=== PATIENT | male | born 1950 | race Caucasian/White ===

== ENCOUNTER 2017-07-05 00:54 | Inpatient (IN) | payer OTHER, MEDICAID ==
[~2017-07-05] VITALS: Ht 160 cm; Wt 60.3 kg
[2017-07-05] VITALS (7 sets, daily range): BP systolic 129–172; BP diastolic 56–69
[2017-07-05 02:06] LABS: BASOPHIL % 0.5 % (0-2); PLATELET COUNT 330 x10^3mcL (130-400)
[2017-07-05 02:09] LABS: RED CELL DISTRIBUTION WIDTH 16.2 % (11.5-14.5)
[2017-07-05] MEDS ORDERED: ARICEPT10 MG PO (03:03)
[2017-07-05] MEDS ORDERED: COLACE100 MG PO (03:04)
[2017-07-05] MEDS ORDERED: GOOD SENSE ASPI81 M3 PO (03:04)
[2017-07-05] MEDS ORDERED: NATURE'S BLEND F1 MG PO (03:04)
[2017-07-05] MEDS ORDERED: KEPPRA500 MG PO (03:05)
[2017-07-05] MEDS ORDERED: LEVEMIR100 U/M1 SC (03:06)
[2017-07-05] MEDS ORDERED: MULTI-VITAMINS1 TAB PO (03:07)
[2017-07-05] MEDS ORDERED: LEXAPRO10 MG PO (03:07)
[2017-07-05] MEDS ORDERED: MOM PO (03:07)
[2017-07-05] MEDS ORDERED: NOR10 PO (03:08)
[2017-07-05] MEDS ORDERED: RISPERIDONE1 MG PO (03:08)
[2017-07-05] MEDS ORDERED: APAP500 MG PO (03:09)
[2017-07-05 03:51] LABS: ALBUMIN 2.8 g/dL (3.4-5.0); CREATININE SERUM 2.2 mg/dL (0.7-1.3); POTASSIUM SERUM 4.5 mmol/L (3.5-5.1); TOTAL PROTEIN, SERUM 7.1 g/dL (6.4-8.2)
[2017-07-05 03:52] LABS: BILIRUBIN TOTAL 0.1 mg/dL (0.20-1.00); CALCIUM 8.4 mg/dL (8.5-10.1)
[2017-07-05 04:25] LABS: MAGNESIUM 2.5 mg/dL (1.8-2.4); PHOSPHOROUS 4.9 mg/dL (2.5-4.9)
[2017-07-05 04:35] LABS: T3 TOTAL 1.07 ng/mL
[2017-07-05 05:19] LABS: FREE T4 0.88 ng/dL (0.76-1.46); FREE THYROXINE INDEX 2.8 ug/dL (1.4-4.5)
[2017-07-05 07:30] LABS: TOTAL IRON BINDING CAPACITY 409 ug/dL (250-450)
[2017-07-05 07:32] LABS: IRON 23 ug/dL (65-170)
[2017-07-05 07:44] LABS: RED BLOOD CELLS 2.63 M/mm3 (4.52-5.90)
[2017-07-05 07:50] LABS: UA SPECIFIC GRAVITY 1.015 (1.005-1.035); microscopic required? YES
[2017-07-05 07:51] LABS: urine erythrocyte TRACE (NEGATIVE)
[2017-07-06 00:30] VITALS: BP 110/47
[2017-07-06 08:13] LABS: BASOPHIL % 0.3 % (0-2); PLATELET COUNT 309 x10^3mcL (130-400)
[2017-07-06 09:04] LABS: RED CELL DISTRIBUTION WIDTH 17.6 % (11.5-14.5)
[2017-07-06 09:08] LABS: CALCIUM 8.8 mg/dL (8.5-10.1); CARBON DIOXIDE 25.8 mmol/L (21-32); CREATININE SERUM 1.8 mg/dL (0.7-1.3); POTASSIUM SERUM 5.2 mmol/L (3.5-5.1)
[2017-07-06 09:20] VITALS: BP 144/61
[2017-07-06 10:09] VITALS: BP 124/63
[2017-07-06 13:16] VITALS: BP 115/64
[2017-07-06 16:54] VITALS: BP 158/76
[2017-07-06 19:14] VITALS: Ht 160 cm; Wt 60.3 kg
[2017-07-06 20:50] VITALS: BP 152/63
[2017-07-07 05:30] VITALS: BP 150/69
[2017-07-07 07:20] LABS: CALCIUM 8.5 mg/dL (8.5-10.1); CARBON DIOXIDE 28.1 mmol/L (21-32); CREATININE SERUM 1.6 mg/dL (0.7-1.3); POTASSIUM SERUM 4.1 mmol/L (3.5-5.1)
[2017-07-07 07:28] LABS: BASOPHIL % 0.4 % (0-2); PLATELET COUNT 314 x10^3mcL (130-400)
[2017-07-07 07:30] LABS: RED CELL DISTRIBUTION WIDTH 17.4 % (11.5-14.5)
[2017-07-07 07:34] LABS: rbc morphology (normal/abnorm) ABNORMAL (NORMAL)
[2017-07-07 09:06] VITALS: BP 131/56
[2017-07-07 16:08] VITALS: BP 146/63
[2017-07-07 16:55] VITALS: BP 156/62
[2017-07-07 20:23] VITALS: BP 141/54
[2017-07-08 05:08] VITALS: BP 125/57
[2017-07-08 08:26] LABS: BASOPHIL % 0.1 % (0-2); PLATELET COUNT 315 x10^3mcL (130-400)
[2017-07-08 08:57] LABS: RED CELL DISTRIBUTION WIDTH 17.1 % (11.5-14.5)
[2017-07-08 09:50] VITALS: BP 133/63
[2017-07-08 17:18] VITALS: BP 133/63
[2017-07-08 18:11] VITALS: BP 145/59
== END 2017-07-08 18:27 | DRG 811 ==
LOC: ED 00:54 → DU 02:39 → MU 07-08 09:55
PROVIDERS: Emergency Medicine; Family Medicine; Internal Medicine Gastroenterology; ADMIT Family Medicine
PROC: 0DB78ZX Excision of Stomach, Pylorus, Via Natural or Artificial Opening Endoscopic, Diagnostic (ICD-10-PCS; principal; 2017-07-06 08:00)
PROC: 0DJD8ZZ Inspection of Lower Intestinal Tract, Via Natural or Artificial Opening Endoscopic (ICD-10-PCS; 2017-07-06 08:00)
DX: D62 Acute posthemorrhagic anemia (principal); K29.01 Acute gastritis with bleeding; N17.0 Acute kidney failure with tubular necrosis; E43 Unspecified severe protein-calorie malnutrition; E87.0 Hyperosmolality and hypernatremia; N18.4 Chronic kidney disease, stage 4 (severe); K57.30 Diverticulosis of large intestine without perforation or abscess without bleeding; E11.51 Type 2 diabetes mellitus with diabetic peripheral angiopathy without gangrene; E11.65 Type 2 diabetes mellitus with hyperglycemia; I12.9 Hypertensive chronic kidney disease with stage 1 through stage 4 chronic kidney disease, or unspecified chronic kidney disease; Z79.4 Long term (current) use of insulin; T39.015A Adverse effect of aspirin, initial encounter; Y92.009 Unspecified place in unspecified non-institutional (private) residence as the place of occurrence of the external cause; M62.50 Muscle wasting and atrophy, not elsewhere classified, unspecified site; E83.41 Hypermagnesemia; F32.9 Major depressive disorder, single episode, unspecified; G40.909 Epilepsy, unspecified, not intractable, without status epilepticus; F03.90 Unspecified dementia, unspecified severity, without behavioral disturbance, psychotic disturbance, mood disturbance, and anxiety; Z68.23 Body mass index [BMI] 23.0-23.9, adult
CPT/HCPCS: 43235; 45378; 82962; 83880; 84439; 92610-GN; 97110-GP; 97116-GP; 97530-GP; J1200; J1610; J2250; J2310; J2916; J3010; J3490; J7030; J7042; J7070; Q0092